=== PATIENT | female | born 1980 | race Caucasian/White ===

== ENCOUNTER 2023-09-17 22:56 | Emergency (ER) | payer SELFPAY ==
[2023-09-17 23:03] VITALS: BP 98/72
[2023-09-17 23:21] LABS: COVID-19 Antigen Positive (Negative)
[2023-09-18 01:51] VITALS: BMI 21.2
[2023-09-18] MEDS: DECADRON 10 MG PO (02:45)
--- NOTE | 2023-09-18 02:46 | ED.GENMED ---
History of Present Illness
General
Chief Complaint: Throat Problem
Source: patient
Exam Limitations: none
Time Seen by Provider: 09/18/23 02:32
Nursing documentation reviewed up to this point in time: agreed with
Travel History
Have you had any contact with someone who has COVID-19?: No
Do you have any symptoms of coronavirus? Fever > 100 degrees, chills, cough, shortness of breath, sore throat, loss of taste or smell, muscle aches, or headache?: Yes
Symptoms:: fever, vomiting, sore throat
History of Present Illness
History of Present Illness:
42-year-old female with no significant chronic medical issues presents to the emergency room for evaluation of flulike syndrome. Patient reports feeling unwell for the past 4 days. She says she has had congestion, fatigue, chills and severe sore
throat. She says she is mainly concerned about sore throat�she says that she has pain with swallowing and eating. She apparently had negative strep test at urgent care earlier today. She feels that her symptoms are poorly controlled and came to
the emergency room for assessment. In addition to above symptoms she says she has had 'sour stomach' and nausea with few episodes of vomiting.
Review of Systems
Review of Systems
All Other Systems: ROS reviewed and negative except as documented in HPI and ROS
Constitutional: Reports fever, fatigue and chills
EENT: Reports sore throat and runny nose
Respiratory: Reports cough; Denies trouble breathing
Cardiac: Denies chest pain or palpitations
ABD/GI: Reports nausea and vomiting; Denies abdominal pain
: Denies flank pain
Musculoskeletal: Denies neck pain or back pain
Phy Exam
Physical Exam
Physical Exam:
General: Awake, alert; no acute distress
Head: Normocephalic, atraumatic
Eyes: Conjunctiva normal, EOMI
Throat: Airway intact, handling secretions, midline uvula, some erythema of the uvula and pharynx but no palatal petechiae, no tonsillar erythema or exudate
Neck: Trachea midline, bilateral anterior cervical chain lymphadenopathy
Lungs: Clear to auscultation bilaterally, no wheezing, rales, rhonchi
Heart: Regular rate and rhythm, no murmurs, gallops, or rubs
Neuro: No gross deficits
Skin: no rash
Extremities: Warm and well-perfused
Scores
Heart Failure Risk
Heart Failure Risk Score: Not Applicable
Heart Score for Chest Pain Patients
STEMI patient?: Not applicable
Withdrawal Assessment of Alcohol
Withdrawal Assessment Completed?: Not applicable
Course
Orders/Labs/Results
Orders:
Orders
09/17/23 23:09
COVID-19 Antigen Urgent
Source: Nasal Swab
Influenza A+B Rapid Molecular Urgent
MARY LOU Source: Nasal Swab
Specimen Description:
Date Specimen was Collected: 09/17/23
Time Specimen was Collected: 23:07
Rapid Strep Group A Urgent
MARY LOU Source: Throat/Pharynx
Specimen Description:
Date Specimen was Collected: 09/17/23
Time Specimen was Collected: 23:07
09/18/23 02:33
Dexamethasone [Decadron] 10 mg PO NOW STA
Ketorolac [Toradol] 30 mg IM NOW STA
Abnormal Lab Results
09/17/23
23:09
SARS-CoV-2 Antigen Positive A
(Negative)
Vital Signs
Initial and Last Documented VS:
Initial Vital Signs
Temp Pulse Resp BP Pulse Ox
36.9 C 79 18 98/72 98
09/17/23 23:03 09/17/23 23:03 09/17/23 23:03 09/17/23 23:03 09/17/23 23:03
Last Documented Vital Signs
Temp Pulse Resp BP Pulse Ox
36.9 C 79 18 98/72 95
09/17/23 23:03 09/17/23 23:03 09/17/23 23:03 09/17/23 23:03 09/18/23 01:50
MDM/Problems Addressed
Differential Diagnosis Includes:
Flu, COVID, other viral syndrome
MDM/Problems Addressed:
42-year-old female with flulike illness. She has a sore throat, congestion, fever/chills also has had some nausea and vomiting. Vital signs normal. Exam as above. She is positive for COVID suspect this is the etiology of her symptoms. Will
treat with Decadron for sore throat. Advised Tylenol/Motrin as needed, plenty of fluids. Will prescribe Zofran as needed for nausea. Considered Paxlovid but no comorbidities no clear indication and 4 days out from onset�risk likely outweigh
benefits in this case.
*Pulse Oximetry
Patient hypoxic: no
*Critical Care Note
Total Time (30-74mins, 75-104mins- exclusive of procedures): Not Applicable
Data Reviewed
Source: patient
Prescriptions/Medications Considered But Not Given:
Considered Paxlovid
ED Attending Note
-
Portions of this chart may have been created with voice recognition software.� Occasional wrong word or��sound alike� substitutions may have occurred due to the inherent limitations of voice recognition software.
Discharge Plan
Departure
Patient Disposition: Home (Routine Discharge)
Date of Disposition: 09/18/23
Time of Disposition: 02:42
Patient with high blood pressure during this ER visit?: No
Discharge Problem:
COVID-19, Pharyngitis
Instructions: COVID-19 (DC), Sore Throat - Adult
Prescriptions:
New
ondansetron 4 mg tablet,disintegrating
4 mg PO TIDPRN PRN (Reason: nausea/vomiting) Qty: 20 0RF
Referrals:
Alee Corrales CRNP [Family Provider] - Call in 1-3 days for appt
Activity Restrictions/Additional Instructions:
Thank you for visiting the Emergency Department at [facility].
1. Please schedule a follow up appointment as directed. Call first thing tomorrow morning to make an appointment.
2. If indicated, please take your medications as instructed and indicated on discharge paperwork.
3. If any of your symptoms do not improve, or persist, or become more severe within 6-12 hours, please return to the emergency department for further care.
4. Please return to the emergency department if you develop a headache, neck pain/stiffness, fever greater than 100.4F, chest pain, shortness of breath, persistent nausea, vomiting, slurred speech, difficulty walking, numbness/tingling, weakness,
signs of infection or any other symptoms that are worrisome to you.
Please call [phone] if you have any questions.
Interventions
Interventions:
*Risk Screen - Suicide Last Done: 09/17/23 23:03
*Neglect/Abuse Screening Last Done: 09/17/23 23:03
ED- Fall Risk Assessment Last Done: 09/18/23 01:54
*ED COVID-19 Vaccine History Last Done: 09/17/23 23:03
ED-EENT Assessment Last Done: 09/18/23 01:52
ED- Pulmonary Assessment Last Done: 09/18/23 01:50
Discharge Date and Time
Print Language: SAMI
[2023-09-18] MEDS: ZOFRAN ODT (ORALLY DISINTEGRATING) 4 MG PO (02:56)
[2023-09-18 03:04] VITALS: BP 112/72
[2023-09-18 03:12] VITALS: BP 112/72
== END 2023-09-18 03:13 | disposition home or self-care (01) ==
LOC: EMR 22:56
PROVIDERS: Emergency Medicine; EMERGENCY PHYSICIAN Emergency Medicine; FAMILY PHYSICIAN Nurse Practitioner Family
DX: U07.1 COVID-19 (principal); J02.9 Acute pharyngitis, unspecified
CPT/HCPCS: 99283; 87070; 87502; 87811; 87880